=== PATIENT | male | born 1940 | race Caucasian/White ===

== ENCOUNTER → 2017-09-16 | Outpatient (CLI) | payer MEDICARE ==
--- NOTE | 2017-09-16 11:45 | PN ---
PROGRESS NOTE DATE OF SERVICE: 09/16/17 77-year-old gentleman has been followed in Sleep Center for treatment of severe obstructive sleep apnea-hypopnea syndrome. Recently patient has been diagnosed with obstructive sleep apnea by polysomnogram and CPAP titration done. Titration was difficult. Even with the high pressure the patient still had some abnormalities of respiration. I explained to him results of the tests in details. Patient subsequently was started on treatment with CPAP and this is his first visit with CPAP. The patient has difficulties with the usage of CPAP, mostly related to the pressure. He wakes up several times during the night and feels that pressure is high. I checked his CPAP unit. It is on automatic regimen with level of pressure between 5 and 20. Ramp is automatic. The patient is using equipment 100% of the time for more than 4 hours. Average usage is 7.5 hours. Average pressure in the machine 18.2 cm of water. Leak is 11 L/minute which is acceptable. Apnea-hypopnea index for the last month 6.3. [place] Sleepiness Scale is 9. MEDICATIONS: Lipitor, losartan, amlodipine, aspirin, Katie, Centrum Silver. PHYSICAL EXAM: GENERAL Patient is in no distress. VITAL SIGNS BP 141/73, HR 68, RR 16, weight 235, temp 97.9, oxygen saturation on room air 93%. HEENT PERRLA, EOMI, evaluation of oropharynx showed low position of soft palate. NECK Supple, no JVD. Thyroid is not palpable. LUNGS Clear to percussion and to auscultation. Good air exchange. No wheezing or rhonchi. HEART S1, S2 regular. No murmurs, gallops, or rubs. ABDOMEN Slightly obese, soft and nontender. Bowel sounds are present. No organomegaly appreciated. EXTREMITIES No clubbing or cyanosis. MANAGER PROVIDER RELATIONS Awake, alert, and oriented X3. Cranial nerves 2 to 7 intact. There is no fasciculation or atrophy. noted. No focal deficits observed. IMPRESSION: 1. Severe obstructive sleep apnea-hypopnea syndrome. The patient demonstrated 100% compliance with treatment benefitting from treatment. 2. Mild obesity. 3. Hypertension. 4. Hyperlipidemia. 5. History of sinusitis. 6. History of allergy. 7. Status post cholecystectomy. 8. Status post stroke in 2016. 9. Chronic cough. PLAN: 1. Patient will continue to use CPAP therapy every night for the whole night. 2. I will decrease maximal pressure to 15 cm of water. 3. Sleep hygiene with regular time in bed for at least 8 hours. 4. We fit the patient with a slightly different style of the full-face mask, which I believe will be more comfortable. 5. Follow up visit in 2 months. Thank you very much for allowing me to participate in management of your patient. Sincerely, Mann Mckeon MD, PhD, FAASM Diplomat of [employer] [place] [employer] Fur Dry Cleaner of [facility] [place] MMODL / BARBRAN: [id number] /
== END | disposition home or self-care (01) ==
LOC: SLEEP 10:24
PROVIDERS: ATTEND Internal Medicine
DX: G47.33 Obstructive sleep apnea (adult) (pediatric) (principal); E66.9 Obesity, unspecified; I10 Essential (primary) hypertension; E78.5 Hyperlipidemia, unspecified; Z90.49 Acquired absence of other specified parts of digestive tract; R05 Cough; Z87.898 Personal history of other specified conditions; Z91.09 Other allergy status, other than to drugs and biological substances; Z86.69 Personal history of other diseases of the nervous system and sense organs; Z99.89 Dependence on other enabling machines and devices; Z79.82 Long term (current) use of aspirin; Z79.899 Other long term (current) drug therapy

== ENCOUNTER → 2017-11-18 | Outpatient (CLI) | payer MEDICARE ==
--- NOTE | 2017-11-18 11:45 | SFUN ---
SLEEP CENTER FOLLOW UP NOTE DATE OF SERVICE: 11/18/2017. This 77-year-old gentleman had been followed in sleep center for treatment of obstructive sleep apnea-hypopnea syndrome. Last time when I saw patient about 2 months ago, I changed his maximal CPAP pressure down to 15 cm of water. The patient continued to use his CPAP equipment every night but still sometimes has problem with breathing although for the last week his breathing improved and he feels that he slept better. I checked his CPAP unit. Range of the pressure is 5 to 15 cm of water and average pressure is 14.7 cm of water. Leak is 7 L/minute, which is totally normal. Apnea- hypopnea index for the last week averages 6.0 for the last night it is only 1.8. [place] Sleepiness Scale today is 3. MEDICATIONS: Losartan, Lipitor, amlodipine, aspirin, Katie, Centrum Silver. PHYSICAL EXAMINATION: During physical exam, patient in no distress. VITAL SIGNS: BP 131/71, HR 58, RR 16, height 72, BMI 31.7. Neck 17 inches in circumference. Temperature 98.4. Oxygen saturation at room air 95%. HEENT: PERRLA, EOMI. Oropharynx low position of soft palate. NECK: Supple, no JVD. Thyroid is not palpable. LUNGS: Clear to percussion and to auscultation. Good air exchange. No wheezing or rhonchi. HEART: S1, S2 regular. No murmurs, gallops, or rubs. ABDOMEN: Soft and nontender. Bowel sounds are present. No organomegaly appreciated. EXTREMITIES: No clubbing or cyanosis. GROUND LAYER: Awake, alert, and oriented X3. Cranial nerves 2 to 7 intact. There is no fasciculation or atrophy. noted. No focal deficits observed. IMPRESSION: 1. Severe obstructive sleep apnea-hypopnea syndrome. Patient demonstrated 100% compliance with treatment, benefitting from treatment. 2. Hypertension. 3. Mild obesity. 4. Hyperlipidemia. 5. History of sinusitis. 6. History of allergy. 7. Status post cholecystectomy. 8. Status post stroke in 2016. 9. History of chronic cough. PLAN: 1. I will increase maximal pressure in the CPAP unit to 18. Patient will continue to use his CPAP equipment every night for the whole night. 2. Watching and losing weight. 3. Sleep hygiene with regular time in bed for at least 8 hours. 4. Follow-up visit in 4 months. Thank you very much for allowing me to participate in management of your patient. Sincerely, Mann Mckeon MD, PhD, FAASM Diplomat of [employer] [employer] Contact Center Rep of [facility] [place] MMODL / BARBRAN: [id number] /
== END | disposition home or self-care (01) ==
LOC: SLEEP 10:27
PROVIDERS: ATTEND Internal Medicine
DX: G47.33 Obstructive sleep apnea (adult) (pediatric) (principal); I10 Essential (primary) hypertension; E66.9 Obesity, unspecified; E78.5 Hyperlipidemia, unspecified; Z90.49 Acquired absence of other specified parts of digestive tract; Z87.09 Personal history of other diseases of the respiratory system; Z86.73 Personal history of transient ischemic attack (TIA), and cerebral infarction without residual deficits; Z91.09 Other allergy status, other than to drugs and biological substances; Z99.89 Dependence on other enabling machines and devices; Z68.31 Body mass index [BMI] 31.0-31.9, adult; Z79.899 Other long term (current) drug therapy; Z79.82 Long term (current) use of aspirin

== ENCOUNTER → 2018-03-24 | Outpatient (CLI) | payer MEDICARE ==
--- NOTE | 2018-03-24 10:59 | SFUN ---
SLEEP CENTER FOLLOW UP NOTE DATE OF SERVICE: 03/24/2018 This 77-year-old gentleman had been followed in sleep center for treatment of obstructive sleep apnea-hypopnea syndrome. The patient continued to use his CPAP equipment every night for the whole night without significant problems related to mask, pressure or humidification. [place] Sleepiness Scale today is 8. I checked his CPAP unit. Usage is 100% of the time more than 4 hours, average 7.3 hours per night. The pressure ranged from 5 to 18 cm of water. Average pressure for the last month, 16.1, leak is only 4 L/minute, which is perfect. Apnea-hypopnea index for the last night 3.5, for the last month 4.2 average. MEDICATIONS: Losartan, Lipitor, amlodipine, aspirin Katie, Centrum Silver. PHYSICAL EXAM: During physical exam, the patient in no distress. VITAL SIGNS: BP 135/62, HR 64, RR 14, height 6 feet 2 inches, weight 227.6, body mass index 29.1, temperature 97.9, oxygen saturation room air 95%. HEENT: PERRLA, EOMI. Oropharynx low position of soft palate. Neck is 17 inches in circumference. LUNGS: Clear to percussion and to auscultation. Good air exchange. No wheezing or rhonchi. HEART: S1, S2 regular. No murmurs, gallops, or rubs. ABDOMEN: Soft and nontender. Bowel sounds are present. No organomegaly appreciated. EXTREMITIES: No clubbing or cyanosis. BOILER OPERATOR HELPER: Awake, alert, and oriented X3. Cranial nerves 2 to 7 intact. There is no fasciculation or atrophy. noted. No focal deficits observed. IMPRESSION: 1. Severe obstructive sleep apnea hypopnea syndrome, on control with CPAP. Patient demonstrated 100% compliance with treatment benefitting from treatment. 2. Hypertension. 3. Hyperlipidemia. 4. History of sinusitis. 5. History of allergy. 6. Status post cholecystectomy. 7. Status post stroke in 2016. 8. History of chronic cough. PLAN: 1. Patient will continue to use CPAP equipment every night for the whole night. 2. Watching weight. 3. Sleep hygiene with regular time in bed for least 8 hours. 4. No driving if feeling any sleepiness. 5. Will maintain prescription for all necessary CPAP supplies including mask, tube, filters. 6. Followup visit in 1 year or earlier if patient has any problems. Thank you very much for allowing me to participate in management of your patient. Sincerely, Mann Mckeon MD, PhD, FAASM Diplomat of [employer] [employer] Medicine Dormitory Keeper of [facility] [place] ISAURA / NEGRA: [id number] /
== END | disposition home or self-care (01) ==
LOC: SLEEP 09:54
PROVIDERS: ATTEND Internal Medicine
DX: G47.33 Obstructive sleep apnea (adult) (pediatric) (principal); I10 Essential (primary) hypertension; E78.5 Hyperlipidemia, unspecified; Z87.09 Personal history of other diseases of the respiratory system; Z86.73 Personal history of transient ischemic attack (TIA), and cerebral infarction without residual deficits; Z91.09 Other allergy status, other than to drugs and biological substances; Z90.49 Acquired absence of other specified parts of digestive tract; Z99.89 Dependence on other enabling machines and devices; Z79.82 Long term (current) use of aspirin; Z79.899 Other long term (current) drug therapy

== ENCOUNTER → 2019-03-30 | Outpatient (CLI) | payer MEDICARE ==
--- NOTE | 2019-03-30 13:13 | PN ---
PROGRESS NOTE DATE OF SERVICE: 03/30/2019 A 78-year-old gentleman who has been followed in the Sleep Center for treatment of severe obstructive sleep apnea-hypopnea syndrome. Patient had been diagnosed with obstructive sleep apnea in severe range in 2018. Since that time, patient is on treatment with CPAP, but he still continued to have problems with the sleep at night. He wakes up many times from sleep, although he is using his CPAP equipment. Because results of the titration 1 year ago was not perfect. Patient is on treatment with auto PAP in the range of pressure 5 to 18. I checked his CPAP unit, range of the pressure 5-18, average pressure 17.1, usages for the last month, 29/30 nights and 28/30 nights for more than 4 hours with average usage is 6.66 minutes 6 hours. Leak is 23 L/minute, which is borderline for full-face mask. Apnea-hypopnea index for the last night is 15.0, for the last month average 6.5. Anthony Sleepiness Scale significantly increased to 14. MEDICATIONS: Lipitor, losartan, amlodipine, aspirin, Katie, Centrum Silver supplement. PHYSICAL EXAM: Patient in no distress. VITAL SIGNS: BP 148/77, HR 66, RR 14, height 6 and 1. Weight 226, which is 1 pound less than one year ago. Body mass index 29.8, temperature 98.0, oxygen saturation at room air 94% on room air. OROPHARYNX: Low position of soft palate. Mallampati 4. ABDOMEN: Slightly obese. NECK: Supple, no JVD. Thyroid is not palpable. LUNGS: A few wheezes under low part of right lung. HEART: S1, S2 regular. No murmurs, gallops, or rubs. EXTREMITIES: No clubbing or cyanosis. STATION WORKER: Awake, alert, and oriented X3. Cranial nerves 2 to 7 intact. There is no fasciculation or atrophy. noted. No focal deficits observed. IMPRESSION: 1. Severe obstructive sleep apnea-hypopnea syndrome. Patient demonstrated great compliance with treatment, but continued to have problems with sleep, has multiple awakenings from sleep while using CPAP. A significant decreasing Anthony Sleepiness Scale is 14. 2. Hypertension. 3. Hyperlipidemia. 4. History of sinusitis. 5. History of allergies. 6. Status post cholecystectomy. 7. Status post stroke in 2016. 8. History of chronic cough. PLAN: 1. Will repeat CPAP, if necessary BiPAP titration for evaluation of effective pressure for correction of the patient's respiratory abnormalities. 2. Losing weight. 3. Sleep hygiene with regular time in bed for 7-1/2 - 8 hours. 4. Patient will continue to use his CPAP equipment at the present time with the same regimen. 5. No driving if feeling sleepiness. Thank you very much for allowing me to participate in the management of your patient. Sincerely, Mann Mckeon MD, PhD, FAASM Diplomat of [place]ties [employer] [place] [employer] Internal Medicine Turn Out Worker of [facility] [place] MMODL / IJN: [id number] /
== END | disposition home or self-care (01) ==
LOC: SLEEP 11:53
PROVIDERS: ATTEND Internal Medicine
DX: G47.33 Obstructive sleep apnea (adult) (pediatric) (principal); I10 Essential (primary) hypertension; E78.5 Hyperlipidemia, unspecified; Z79.82 Long term (current) use of aspirin; Z79.899 Other long term (current) drug therapy; Z90.49 Acquired absence of other specified parts of digestive tract; Z87.09 Personal history of other diseases of the respiratory system; Z86.73 Personal history of transient ischemic attack (TIA), and cerebral infarction without residual deficits; Z91.09 Other allergy status, other than to drugs and biological substances; Z99.89 Dependence on other enabling machines and devices

== ENCOUNTER → 2019-07-26 | Outpatient (CLI) | payer MEDICARE ==
--- NOTE | 2019-07-26 13:18 | SFUN ---
SLEEP CENTER FOLLOW UP NOTE DATE OF SERVICE: 07/26/2019 This 78-year-old gentleman has been followed in sleep center for treatment of obstructive sleep apnea-hypopnea syndrome. Recently patient had BiPAP titration and received this machine in May of 2019. He is able to use machine every night, sometimes feels a little bit leak from the mask. Otherwise, sleeps better with the machine. [place] Sleepiness Scale today is 14. MEDICATIONS: Lipitor, losartan, amlodipine, aspirin, Katie, Centrum Silver. I checked patient's BiPAP unit, maximal IPAP pressure 18, minimal expiratory pressure 6 with a pressure support of 4, average pressure 17.8 over 13.8. Leak only 5 L/minute. Apnea-hypopnea index for the last night 8.7, average for the last month 11.6 with total apnea index 7.2. PHYSICAL EXAMINATION: During physical exam, patient in no distress. VITAL SIGNS: BP 149/86, HR 64, RR 16, weight 230, temp 97, oxygen saturation at room air 94%. HEENT: PERRLA, EOMI. Oropharynx low position of soft palate, Mallampati 3. NECK: Supple, no JVD. Thyroid is not palpable. LUNGS: Clear to percussion and to auscultation. Good air exchange. No wheezing or rhonchi. HEART: S1, S2 regular. No murmurs, gallops, or rubs. ABDOMEN: Soft and nontender. Bowel sounds are present. No organomegaly appreciated. EXTREMITIES: No clubbing or cyanosis. FUNERAL SERVICE MANAGER: Awake, alert, and oriented X3. Cranial nerves 2 to 7 intact. There is no fasciculation or atrophy. noted. No focal deficits observed. IMPRESSION: 1. Severe obstructive sleep apnea-hypopnea syndrome, improved on BiPAP. The patient demonstrated great compliance with treatment, benefitting from treatment. 2. Hypertension. 3. Hyperlipidemia. 4. History of sinusitis. 5. History of allergies. 6. Status post cholecystectomy. 7. Status post stroke in 2016. 8. History of chronic cough. PLAN: 1. Patient will continue to use BiPAP equipment every night for the whole night. 2. I will increase maximal inspiratory pressure to 20, keep the same level of minimal expiratory pressure of 6 and the same pressure support of 4 cm of water. 3. Sleep hygiene with regular time in bed for at least 7-1/2 to 8 hours. 4. Precautions related to driving. No driving if feeling sleepiness. 5. Follow-up visit in 2 months. Thank you very much for allowing me to participate in management of your patient. Sincerely, Mann Mckeon MD, PhD, FAASM Diplomat of [place] [employer] [employer] Medicine Extension Worker of [facility] [place] MMODL / BARBRAN: [id number] /
== END | disposition home or self-care (01) ==
LOC: SLEEP 11:36
PROVIDERS: ATTEND Internal Medicine
DX: G47.33 Obstructive sleep apnea (adult) (pediatric) (principal); I10 Essential (primary) hypertension; E78.5 Hyperlipidemia, unspecified; Z99.89 Dependence on other enabling machines and devices; Z87.39 Personal history of other diseases of the musculoskeletal system and connective tissue; Z87.898 Personal history of other specified conditions; Z87.09 Personal history of other diseases of the respiratory system; Z86.73 Personal history of transient ischemic attack (TIA), and cerebral infarction without residual deficits; Z90.49 Acquired absence of other specified parts of digestive tract; Z79.82 Long term (current) use of aspirin; Z79.899 Other long term (current) drug therapy

== ENCOUNTER → 2020-02-19 | Outpatient (CLI) | payer MEDICARE ==
--- NOTE | 2020-02-19 15:42 | US ---
EXAMINATION TYPE: US kidneys/renal and bladder DATE OF EXAM: 02/19/2020 COMPARISON: NONE CLINICAL HISTORY: R31.9 Hematuria. frequency EXAM MEASUREMENTS: Right Kidney: 11.8 x 6.4 x 5.8 cm Left Kidney: 12.4 x 6.5 x 5.9 cm Post Void Residual Volume: 337.8 mL Right Kidney: 2 superior pole cysts: Medial = 3.8 x 2.9 x 2.7 Lateral = 4.7 x 4.1 x 3.6 Left Kidney: Mid pole cyst =1.2 0.9 x 0.8 cm Bladder: with stones. anterior wall = 0.5 cm. posterior wall = 1.1 cm ? enlarged prostate = 6.8 cm Bilateral Jets seen: Yes Normal Post Void Residual: No 2 adjacent thin-walled cysts upper pole of the right kidney noted. Technologist also identifies tiny cyst near 1 cm exophytic cyst left kidney upper to mid pole level. No hydronephrosis noted bilaterall y. Mild to moderately distended bladder with intraluminal calculi. Prominent prostate. Abnormal post void residual. IMPRESSION: Underlying BPH with abnormal post void residual suggesting outlet obstruction. Intralumin al bladder calculi noted.
== END | disposition home or self-care (01) ==
LOC: RADUSWWP 14:50
PROVIDERS: ATTEND Internal Medicine
DX: N40.0 Benign prostatic hyperplasia without lower urinary tract symptoms (principal); N21.0 Calculus in bladder
CPT/HCPCS: 76770

== ENCOUNTER → 2020-03-28 | Outpatient (CLI) | payer MEDICARE ==
[2020-03-28 11:35] LABS: Basophils % (A) 1 %; Eosinophils # (A) 0.7 k/uL (0-0.7); Eosinophils % (A) 10 %; HCT 45.9 % (39.0-53.0); HGB 14.7 gm/dL (13.0-17.5); Lymphocytes # (A) 1.1 k/uL (1.0-4.8); Lymphocytes % (A) 15 %; MCHC 32.1 g/dL (31.0-37.0); MCV 93.6 fL (80.0-100.0); Mean Platelet Volume 7.1; Monocytes # (A) 0.4 k/uL (0-1.0); Monocytes % (A) 6 %; Neutrophils # (A) 4.6 k/uL (1.3-7.7); Neutrophils % (A) 66 %; Platelet Count 133 k/uL (150-450); RDW 13.6 % (11.5-15.5)
[2020-03-28 11:52] LABS: African American GFR (CKD) >90 (>60 ml/min/1.73 sqM); Anion Gap 3 mmol/L; Blood Urea Nitrogen 21 mg/dL (9-20); Calcium 9.2 mg/dL (8.4-10.2); Carbon Dioxide 29 mmol/L (22-30); Chloride 106 mmol/L (98-107); Glucose 109 mg/dL (74-99); Non-African American GFR(CKD) 83 (>60 ml/min/1.73 sqM); Potassium 3.9 mmol/L (3.5-5.1); Sodium 138 mmol/L (137-145)
== END | disposition home or self-care (01) ==
LOC: LABPAT 10:24
PROVIDERS: ATTEND Urology
DX: Z01.818 Encounter for other preprocedural examination (principal); N21.0 Calculus in bladder
CPT/HCPCS: 36415; 80048; 85025

== ENCOUNTER 2020-04-04 10:44 | Day surgery (SDC) | payer MEDICARE ==
[2020-04-02 15:50] VITALS: BMI 28.2
--- NOTE | 2020-04-03 09:48 | P.GSHP ---
History of Present Illness H&P Date: 03/29/20 Chief Complaint: Hematuria The patient is a 79-year-old white male who has experienced dysuria and gross hematuria with activity. Ultrasound showed bilateral renal cysts and bladder calculi. Cystoscopy showed an obstructing prostate, and approximately 10 bladder calculi. He now comes for cystolithotripsy. - Cardiovascular Cardiovascular: Reports high blood pressure - Genitourinary (Male) Genitourinary: Reports dysuria, Reports hematuria Past Medical History Past Medical History: CVA/TIA, Hyperlipidemia, Prostate Disorder History of Any Multi-Drug Resistant Organisms: None Reported Past Surgical History: Cholecystectomy Past Psychological History: No Psychological Hx Reported Past Alcohol Use History: None Reported Past Drug Use History: None Reported - Past Family History Brother(s) Family Medical History: Neurologic Disorder Sister(s) Family Medical History: Cancer Mother Family Medical History: Memory Impairment Medications and Allergies Home Medications Medication Instructions Recorded Confirmed Type Atorvastatin [Lipitor] 40 mg PO HS 06/09/15 04/02/20 History Aspirin 325 mg PO HS 06/10/15 04/02/20 History Multivit-Mins/Iron/Folic/Lycop 1 tab PO DAILY 06/10/15 04/02/20 History [Centrum Men's Tablet] amLODIPine BESYLATE/BENAZEPRIL 1 cap PO DAILY #30 cap 06/11/15 04/02/20 Rx [Lotrel 5-20 mg Capsule] Fexofenadine HCl [Katie Allergy] 180 mg PO DAILY PRN 04/02/20 04/02/20 History Allergies Allergy/AdvReac Type Severity Reaction Status Date / Time No Known Allergies Allergy Verified 04/02/20 15:22 Surgical - Exam - General well developed, well nourished, no distress - Neck no masses, trachea midline - Respiratory normal respiratory effort, clear to auscultation - Cardiovascular Rhythm: regular Abnormal Heart Sounds: no systolic murmur, no diastolic murmur, no rub, no S3 Gallop, no S4 Gallop, no click, no other - Abdomen Abdomen: soft, non tender, no guarding, no rigid, no rebound - Genitourinary normal penis with no external lesions, testicles non-tender - Rectum Rectum: normal sphincter tone, no masses, other (Prostate enlarged but smooth) - Psychiatric oriented to time, oriented to person, oriented to place, speech is normal, memory intact Assessment and Plan (1) Calculus in bladder Status: Acute Code(s): N21.0 - CALCULUS IN BLADDER SNOMED Code(s): 48754615 Plan: Cystoscopy with cystolithotripsy. The procedure has been reviewed in detail with the patient. He is aware of potential risks, which include anesthesia, bleeding, infection, bladder perforation. He was made aware of the fact that patients with BPH and bladder calculi sometimes experience hematuria and difficulty voiding postoperatively. It is anticipated that he will require a Colón catheter postoperatively.
[~2020-04-04 10:44] MED LIST: DEXAMETHASONE SOD PHOSPHATE 10 MG/ML 1 ML VIAL IV ONE; HYDROmorphone 0.5 MG/0.5 ML SYRINGE IVP PRN; LACTATED RINGERS 1,000 ML IV SCH; ONDANSETRON 4 MG/2 ML VIAL IVP ONE
[2020-04-04] MEDS ORDERED: LIDOCAINE 1% (10MG/ML) FOR IV START INTRADERMA ONE (11:27)
[2020-04-04] MEDS ORDERED: fentaNYL (PF) 50 MCG/ML 2 ML AMP ONE (12:32)
[2020-04-04] MEDS ORDERED: PROPOFOL 10 MG/ML 20 ML VIAL IV ONE (12:32)
[2020-04-04] MEDS ORDERED: SUCCINYLCHOLINE CHLORIDE 100 MG/5 ML SYR IV ONE (12:32)
[2020-04-04] MEDS ORDERED: ePHEDrine SULFATE/0.9% NACL/PF 50 MG/5 ML SYRINGE IV ONE (12:32)
[2020-04-04 14:52] VITALS: TEMP 97
[2020-04-04] MEDS ORDERED: LACTATED RINGERS 1,000 ML IV ONE ×2 (15:29)
[2020-04-04 15:34] VITALS: RESP 18
[2020-04-04 16:34] VITALS: BP 151/78; PULSE 79
--- NOTE | 2020-04-04 18:09 | P.OP ---
Date of Procedure: 04/04/20 Preoperative Diagnosis: Bladder Calculi, BPH Postoperative Diagnosis: Same Procedure(s) Performed: Cystoscopy, Cystolithotripsy, Fulgaration of Bleeders Anesthesia: LAURIEA Surgeon: Bar Gale Estimated Blood Loss (ml): 50 IV fluids (ml): 500 Pathology: other (Bladder calculus fragments) Condition: stable Disposition: PACU Indications for Procedure: The patient is a 79-year-old white male who has experienced dysuria and gross hematuria with activity. Ultrasound showed bilateral renal cysts and bladder calculi. Cystoscopy showed an obstructing prostate, and approximately 10 bladder calculi. He now comes for cystolithotripsy. Operative Findings: Multiple bladder calculi. Trilobar BPH. Description of Procedure: The patient was taken to the operating room and placed in the dorsal lithotomy position, with legs supported in Lc stirrups. The external genitalia was prepped and draped sterilely. The 30 lens was used to introduce the 21-German Abdi cystoscopic sheath through the urethra and into the bladder under direct vision. The urethra appeared normal. The prostate showed evidence of trilobar enlargement, and was visually occluded. The bladder was examined in its entiret y. The ureteral orifices appeared normal. Approximately 10 calculi were seen, measuring up to 1.5 cm in diameter. No tumors were seen. No diverticuli were seen. Using the 1000 micron Holmium laser probe, lithotripsy was performed. Lithotripsy was continued until all calculus fragments could be removed through the cystoscope. Once this was completed, the bladder was inspected. There was no active bleeding within the bladder, and no evidence of bladder perforation. Oozing was noted from the prostatic urethra and posterior vesical neck. This was controlled by performing electrocautery, using the Bugbee electrode. An 18- German coud-tip Colón catheter was placed. The return was pink-tinged. The patient tolerated the procedure well was taken to the recovery room in stable condition.
== END 2020-04-04 16:39 | disposition home or self-care (01) ==
LOC: OR 10:44
PROVIDERS: ATTEND Urology
DX: N20.0 Calculus of kidney (principal); N40.0 Benign prostatic hyperplasia without lower urinary tract symptoms; E78.5 Hyperlipidemia, unspecified; Z86.73 Personal history of transient ischemic attack (TIA), and cerebral infarction without residual deficits; I10 Essential (primary) hypertension; G47.33 Obstructive sleep apnea (adult) (pediatric); Z79.82 Long term (current) use of aspirin; Z90.49 Acquired absence of other specified parts of digestive tract; Z80.9 Family history of malignant neoplasm, unspecified; Z81.8 Family history of other mental and behavioral disorders; Z82.0 Family history of epilepsy and other diseases of the nervous system; Z79.899 Other long term (current) drug therapy
CPT/HCPCS: 82365; 52317; J1100; J2405; J0690; J3010; J0330; J2704

== ENCOUNTER → 2021-05-13 | Outpatient (CLI) | payer MEDICARE | END | disposition home or self-care (01) | LOC: CPPFTMAIN 10:28 | PROVIDERS: ATTEND Internal Medicine | DX: R05.9 Cough, unspecified (principal) | CPT/HCPCS: 94060; 94726; 94729 ==

== ENCOUNTER → 2021-10-02 | Outpatient (CLI) | payer MEDICARE ==
--- NOTE | 2021-10-02 11:27 | CA ---
Stress Echo Report Bryant Card Age: 81 Gender: M : 1940 Exam Date: 10/02/2021 09:32 Exam Location: [facility] Ht (in): 74 Wt (lb): 220 Ordering Physician: Kendra Almazan MD Referring Physician: KENDRA ALMAZAN MD,, Microfilm Operator: Rebecca Jimenez RDCS Technologist Procedure CPT: Indication: R06.02 SHORTNESS OF BREATH ICD-9 Codes: Rhythm: Patient History: Dyspnea/SOB, Diabetes mellitus Cardiac Medications: Medications in past 24 hours: Contrast: Stress Results Protocol: Mayank Total dose(mL): Exercise Duration (min:sec): 7.[address] Depression (mm): Angina Score: Urban Score: METS: 8.5 Resting HR: 72 Resting BP: 147 / 71 Peak HR: 134 Peak BP: 198 / 77 Max Predicted HR: 141 95 % Max Predicted HR Target HR: 120 Double Product: 30033 Stress Summary: BP Response: Reason for Termination: Reached target heart rate or work-load Cardiac Symptoms: no symptoms ECG Analysis Resting ECG: Stress ECG: Arrhythmia: Echo Analysis Resting Echo: Peak Echo Analysis: MEASUREMENTS (Male/Female) Normal Values CONCLUSIONS Baseline EKG revealed normal sinus rhythm without significant ST-T changes. Patient walked on a standard Mayank protocol for 7 minutes and achieved a maximum heart rate of 134 bpm which is more than 85% of predicted maximum. He developed fatigue and shortness of breath. There was no angina. Peak blood pressure was 198/77. This is a negative stress test by EKG criteria with fair exercise capacity. Baseline echo images reveal normal wall motion and wall thickening of all segments. At peak exercise there was good augmentation of left ventricle wall motion wall thickening of all segments suggesting that there is no evidence of any stress- induced ischemia on this study. #1 normal stress test by EKG criteria with good exercise capacity #2 normal stress echocardiogram with no evidence of ischemia. Dr. London Mukherjee MD (Electronically Signed) Final Date: 02 October 2021 11:26
== END | disposition home or self-care (01) ==
LOC: RADNMMAIN 09:11
PROVIDERS: ATTEND Internal Medicine
DX: R06.02 Shortness of breath (principal)
CPT/HCPCS: 93351

== ENCOUNTER → 2021-10-08 | Outpatient (CLI) | payer MEDICARE | END | disposition home or self-care (01) | LOC: LABWHC1 10:53 | PROVIDERS: ATTEND Internal Medicine | DX: R05.9 Cough, unspecified (principal); R09.81 Nasal congestion | CPT/HCPCS: U0003; C9803; U0005 ==

== ENCOUNTER → 2022-12-17 | Outpatient (CLI) | payer MEDICARE ==
--- NOTE | 2022-12-17 12:15 | XR ---
EXAMINATION TYPE: XR chest 2V DATE OF EXAM: 12/17/2022 COMPARISON: NONE HISTORY: Shortness of breath TECHNIQUE: Frontal and lateral views of the chest are obtained. FINDINGS: Scattered senescent parenchymal changes noted. Hyperinflation compatible with COPD. No evidence for infiltrate. No evidence for atelectasis. Heart size is stable. Mediastinal structures are stable and grossly unremarkable. Large fixed hiatal hernia noted. No evidence for hilar prominence. Degenerative changes dorsal spine. IMPRESSION: 1. No evidence for acute pulmonary disease.
== END | disposition home or self-care (01) ==
LOC: RADXRMAIN 11:45
PROVIDERS: ATTEND Family Medicine
DX: R06.02 Shortness of breath (principal); R05.9 Cough, unspecified; R04.2 Hemoptysis
CPT/HCPCS: 71046

== ENCOUNTER → 2023-08-04 | Outpatient (CLI) | payer MEDICARE ==
[2023-08-04 15:46] LABS: Basophils # (A) 0.04 X 10*3/uL (0.00-0.10); Basophils % (A) 0.5 %; Eosinophils # (A) 0.35 X 10*3/uL (0.04-0.35); Eosinophils % (A) 4.1 %; HCT 44.8 % (39.6-50.0); HGB 14.5 g/dL (13.0-17.0); Lymphocytes # (A) 1.07 X 10*3/uL (0.90-5.00); Lymphocytes % (A) 12.4 %; MCH 30.1 pg (27.0-32.0); MCHC 32.4 g/dL (32.0-37.0); MCV 92.9 FL (80.0-97.0); Mean Platelet Volume 10.4 FL (9.5-12.2); Monocytes # (A) 0.72 X 10*3/uL (0.20-1.00); Monocytes % (A) 8.4 %; NRBC Per 100 WBC 0 X 10*3/uL (0.00-0.01); Neutrophils # (A) 6.39 X 10*3/uL (1.80-7.70); Neutrophils % (A) 74.1 %; Platelet Count 156 X 10*3/uL (140-440); RBC 4.82 X 10*6/uL (4.40-5.60); RDW 13.5 % (11.5-14.5); WBC 8.61 X 10*3/uL (4.50-10.00)
[2023-08-04 16:12] LABS: Blood Urea Nitrogen 20.4 mg/dL (9.0-27.0); Calcium 8.9 mg/dL (8.7-10.3); Carbon Dioxide 27.2 mmol/L (21.6-31.8); Chloride 108 mmol/L (96-109); Glucose 100 mg/dL (70-110); Potassium 4.1 mmol/L (3.5-5.5); Sodium 143 mmol/L (135-145)
== END | disposition home or self-care (01) ==
LOC: LABWHC1 10:49
PROVIDERS: ATTEND Internal Medicine Interventional Cardiology
DX: I10 Essential (primary) hypertension (principal); I48.91 Unspecified atrial fibrillation
CPT/HCPCS: 36415; 80048; 84443; 85025

== ENCOUNTER → 2023-08-12 | Outpatient (CLI) | payer MEDICARE ==
--- NOTE | 2023-08-12 12:58 | US ---
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 TECHNIQUE: Carotid duplex ultrasound examination. Indirect Doppler criteria was utilized. FINDINGS: EXAM MEASUREMENTS: RIGHT: Peak Systolic Velocity (PSV) cm/sec ----- Right CCA: 88.3 ----- Right ICA: 97.6 ----- Right ECA: 77.1 ICA/CCA ratio: 1.11 RIGHT: End Diastole cm/sec ----- Right CCA: 14.9 ----- Right ICA: 25.7 ----- Right ECA: 6.2 LEFT: Peak Systolic Velocity (PSV) cm/sec ----- Left CCA: 84.3 ----- Left ICA: 78.7 ----- Left ECA: 56.2 ICA/CCA ratio: 0.93 LEFT: End Diastole cm/sec ----- Left CCA: 10.3 ----- Left ICA: 24.6 ----- Left ECA: 32.4 VERTEBRALS (direction of flow): Right Vertebral: Antegrade Left Vertebral: Antegrade Rhythm: Normal PLACEMENT OFFICER NOTES: Mild plaque bilateral bifurcations. No evidence of increased velocities. IMPRESSION: No evidence for hemodynamically significant stenosis. Criteria for Assigning % of Stenosis / Diameter reduction (Estimation based on the indirect measurements of the internal carotid artery velocities (ICA PSV). 1. Normal (no stenosis)=ICA PSV < 125 cm/s: ratio < 2.0: ICA EDV<40 cm/s. 2. Less than 50% stenosis=ICA PSV < 125 cm/s: ratio < 2.0: ICA EDV<40 cm/s. 3. 50 to 69% stenosis=ICA PSV of 125 to 230 cm/s: ration 2.0 ? 4.0: ICA EDV 40-100 cm/s. 4. Greater than 70% stenosis to near occlusion= ICA PSV > 230 cm/s: ratio > 4.0: ICA EDV > 100 cm/s. 5. Near occlusion= ICA PSV velocities may be low or undetectable: variable ratio and ICA EDV. 6. Total occlusion=unable to detect flow.
--- NOTE | 2023-08-12 13:22 | CT ---
EXAMINATION TYPE: CT brain wo con DATE OF EXAM: 08/12/2023 COMPARISON: None available. HISTORY: Memory loss. CT DLP: 1047.1 mGycm Automated exposure control for dose reduction was used. FINDINGS: There is no acute intracranial hemorrhage, mass, mass effect, midline shift, extra-axial fluid collec tion or hydrocephalus. The penn-white distinction is intact without evidence of an acute major vessel infarct. There is some mild scattered mucosal thickening within the maxillary sinuses bilaterally. The visuali zed paranasal sinuses and mastoid air cells otherwise appear clear. IMPRESSION: NO ACUTE INTRACRANIAL PROCESS.
== END | disposition home or self-care (01) ==
LOC: RADUSWWP 12:21
PROVIDERS: ATTEND Family Medicine
DX: G45.9 Transient cerebral ischemic attack, unspecified (principal); R41.3 Other amnesia
CPT/HCPCS: 70450; 93880

== ENCOUNTER → 2024-08-02 | Outpatient (CLI) | payer MEDICARE ==
--- NOTE | 2024-08-02 15:34 | XR ---
EXAMINATION TYPE: XR chest 2V DATE OF EXAM: 08/02/2024 3:21 PM COMPARISON: 12/17/2022 CLINICAL INDICATION: Male, 83 years old with history of R05.9 cough, TECHNIQUE: XR chest 2V view(s) obtained. FINDINGS: The heart size is normal. Large hiatal hernia is present. Air fluid level and air is present. The pulmonary vasculature is normal. The lungs are clear. IMPRESSION: 1. No acute pulmonary process. 2. Large air-filled hiatal hernia [facility] Jerry, , 08/02/2024 3:32 PM
== END | disposition home or self-care (01) ==
LOC: RADXRMAIN 14:23
PROVIDERS: ATTEND Family Medicine
DX: K44.9 Diaphragmatic hernia without obstruction or gangrene (principal); R05.9 Cough, unspecified
CPT/HCPCS: 71046